=== PATIENT | female | born 2000 | race Caucasian/White ===

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

== ENCOUNTER 2021-06-30 14:30 | Emergency (ER) | payer OTHER ==
[~2021-06-30] VITALS: Ht 157.5 cm; Wt 79.8 kg
[2021-06-30 14:42] VITALS: BP 135/75
[2021-06-30] MEDS ORDERED: cefTRIAXone 1,000 MG in LIDOCAINE MPF 1% 2.1 ML IM ONE (15:25)
[2021-06-30] MEDS ORDERED: KETOROLAC 30 MG/ML VIAL IM ONE (15:25)
[2021-06-30] MEDS ORDERED: CEPH-588 PO (16:30)
[2021-06-30] MEDS ORDERED: IBUP-2213 PO (16:30)
[2021-06-30 17:16] VITALS: BP 123/70
--- NOTE | 2021-06-30 17:16 | NUR ---
Patient discharged with v/s stable. Written and verbal after care instructions given FOR PYELONEPHRITIS and explained. Patient alert, oriented and verbalized understanding of instructions. Ambulatory with steady gait. All questions addressed prior to discharge. ID band removed. Patient advised to follow up with PMD. Rx of KEFLEX AND IBUPROFEN given. Patient educated on indication of medication including possible reaction and side effects. Opportunity to ask questions provided and answered.
[2021-06-30] MEDS ORDERED: KETOROLAC 30 MG/ML VIAL ONE (17:27)
[2021-06-30] MEDS ORDERED: cefTRIAXone 1,000 MG VIAL ONE (17:27)
[2021-06-30] MEDS ORDERED: LIDOCAINE MPF 1% 5 ML ONE (17:27)
== END 2021-06-30 17:16 | disposition home or self-care (01) ==
LOC: MED 14:30
DX: N12 Tubulo-interstitial nephritis, not specified as acute or chronic (principal); J45.909 Unspecified asthma, uncomplicated; Z79.1 Long term (current) use of non-steroidal anti-inflammatories (NSAID); Z79.2 Long term (current) use of antibiotics
CPT/HCPCS: 81002; 81025; 87086; 87186; 96372; 99284; J0696; J1885; J2001